=== PATIENT | male | born 1995 | race Caucasian/White ===

== ENCOUNTER 2025-09-11 11:17 | Emergency (ER) | payer MEDICAID, SELFPAY ==
--- NOTE | ~2025-09-11 | CT_ITS ---
CT abdomen pelvis w con Clinical History: BLQ pain, possible diverticulitis . Comparison: None Technique: Axial images lung bases to symphysis pubis IV contrast information not in PACS Coronal, sagittal reformats CT images acquired with automatic exposure control for dose reduction DLP: 513 mGy-cm Findings: Lung bases: Clear. Visualized heart and pericardium: Unremarkable. Liver: Steatosis. Enlarged. Gallbladder: Unremarkable. Spleen: Unremarkable. Pancreas: Unremarkable. Adrenal glands: Unremarkable. Kidneys: Right kidney- No hydronephrosis. Tiny stones. Left kidney- No hydronephrosis. Tiny stones. Distal esophagus/stomach: Unremarkable. Small bowel loops: Normal caliber and wall thickness. Colon: Diverticula. Normal caliber and wall thickness. Normal RLQ appendix. Nodes: No enlarged nodes. Peritoneum: No ascites. No free air. Urinary bladder: Unremarkable. Prostate: Unremarkable. Bones: No acute bony abnormality. Soft tissues: Unremarkable. Aorta: No aneurysm or dissection. IVC: Unremarkable. Main portal vein/SMV/splenic vein: Patent. IMPRESSION: 1. No acute findings. 2. Diverticulosis. No evidence of diverticulitis. 3. Renal stones. No hydronephrosis. Reviewed, dictated and finalized at location R. [facility]IA B[facility] OPERATOR
[2025-09-11 11:21] VITALS: BP 134/115; PULSE 106; RESP 18; TEMP 36.6; O2SAT 99
[2025-09-11] MEDS: KETOROLAC 30 MG/ML VIAL (*BKC) IV PUSH (12:12)
[2025-09-11] MEDS: SODIUM CHLORIDE 0.9% IV 1,000 ML 999 ML IV CONT (12:12)
[2025-09-11 12:13] LABS: Hematocrit 44.5 % (42.0-52.0); Hemoglobin 15.6 g/dL (14.0-18.0); Immature Granulocyte Percent A 0.4 % (0-0.5); Lymphocytes Absolute Auto 2.22 K/mm3 (0.9-3.2); Mean Corpuscular HGB Conc 35.1 g/dl (32-36); Mean Corpuscular Hemoglobin 30.8 pg (26-34); Mean Corpuscular Volume 87.8 fl (80-100); Nucleated Red Blood Cells Absolute Auto 0.000 K/mm3 (0.0-0.012); Nucleated Red Blood Cells Perc 0.0 % (0.0-0.2); Platelet Count Result 268 k/mm3 (150-375); Red Blood Count 5.07 M/mm3 (4.6-6.20); White Blood Count 8.0 K/mm3 (4.5-10.0)
[2025-09-11 12:31] LABS: Alanine Aminotransferase 35 U/L (6-50); Albumin Level 4.4 g/dL (3.5-5.1); Alkaline Phosphatase 78 U/L (38-126); Anion Gap 7 mmol/L (4-12); Aspartate Amino Transferase 40 U/L (17-59); Bilirubin,Total 0.4 mg/dL (0.2-1.3); Blood Urea Nitrogen 13 mg/dL (9-20); Calcium 9.5 mg/dL (8.4-10.2); Carbon Dioxide 26 mmol/L (22-30); Chloride 105 mmol/L (98-107); Estimated CRCL calculation 103 ml/min; Estimated Glomerular Filt Rate > 60; Glucose 102 mg/dL (65-110); Lipase 73 U/L (23-300); Potassium 3.9 mmol/L (3.4-5.0); Sodium 138 mmol/L (137-145); Total Protein 7.5 g/dL (6.3-8.2)
--- NOTE | 2025-09-11 13:50 | ED_ITS ---
HPI - General Adult General Chief complaint: Abdominal Pain Stated complaint: Rectal bleeding x 3 day. abdominal pain Time Seen by Provider: 09/11/25 11:41 History of Present Illness HPI narrative: Patient is a 30-year-old male who presents ER with rectal bleeding x3 days. It only is seen when he wipes and has some discomfort around his anus. No blood in his stool. His stools been soft. He has the sensation that he needs to go the bathroom but cannot get it out. Has some lower abdominal discomfort. Has family history of diverticulitis. Related Data Allergies Allergy/AdvReac Type Severity Reaction Status Date / Time No Known Allergies Allergy Verified 09/11/25 11:19 Review of Systems 2 Review of Systems: All systems reviewed & are unremarkable except as noted in HPI and below Constitutional: Constitutional: Reports no additional constitutional complaints Cardiovascular: Cardiovascular: Reports no additional cardiovascular complaints Gastrointestinal: Gastrointestinal: Reports no additional gastrointestinal complaints Genitourinary: Genitourinary: Reports no additional male genitourinary complaints [facility] Past Medical History Medical History (Updated 09/11/25 @ 13:55 by Rinku Camarena MD) Healthy adult male Surgical History Surgical History (Updated 09/11/25 @ 13:51 by Rinku Camarena MD) No history of previous surgery Exam 2 Narrative: GENERAL: Well-appearing, well-nourished, and in no acute distress. HEAD: Normocephalic, atraumatic. EYES: PERRL and EOMI. ENT: Mucous membranes moist. CHEST: Clear to auscultation. No respiratory distress. HEART: Regular rate and rhythm. Normal peripheral pulses. ABDOMEN: Soft, bilateral lower quadrant abdominal tenderness, nondistended. External rectal exam normal without fissures or masses or blood. Digital exam deferred EXTREMITIES: Normal range of motion. No edema. SKIN: Warm, dry, no rash. NEURO: Alert and oriented x3. PSYCH: Normal mood and affect. Course Course Emergency Course: Discussed imaging and lab results. Given lower abdominal discomfort I will provide him antibiotics for possible diverticulitis. Will also give suppository for likely hemorrhoid that may be just internal to the sphincter. Vital Signs Vital signs: Vital Signs Temperature 97.9 F 09/11/25 11:21 Pulse Rate 106 H 09/11/25 11:21 Respiratory Rate 18 09/11/25 11:21 Blood Pressure 134/115 H 09/11/25 11:21 Pulse Oximetry 99 09/11/25 11:21 Oxygen Delivery Room Air 09/11/25 11:21 Temperature 97.9 F 09/11/25 11:21 Pulse Rate 106 H 09/11/25 11:21 Respiratory Rate 18 09/11/25 11:21 Blood Pressure 134/115 H 09/11/25 11:21 Pulse Oximetry 99 09/11/25 11:21 Oxygen Delivery Room Air 09/11/25 11:21 MDM Differential Diagnosis Differential Diagnosis: Diverticulitis, colitis, kidney stone, hemorrhoid, rectal prolapse Lab Data 09/11/25 12:05 09/11/25 12:05 Labs: Lab Results 09/11/25 Range/Units 12:05 WBC 8.0 (4.5-10.0) K/mm3 RBC 5.07 (4.6-6.20) M/mm3 Hgb 15.6 (14.0-18.0) g/dL Hct 44.5 (42.0-52.0) % MCV 87.8 (80-100) fl MCH 30.8 (26-34) pg MCHC 35.1 (32-36) g/dl RDW 12.8 (11.5-14.5) % Plt Count 268 (150-375) k/mm3 MPV 8.9 (7.4-10.4) fl Immature Gran % (Auto) 0.4 (0-0.5) % Neut % (Auto) 63.5 (45.5-73.1) % Lymph % (Auto) 27.8 (18.3-44.2) % [place] % (Auto) 7.0 (2.6-8.5) % Eos % (Auto) 0.5 (0-4.4) % Baso % (Auto) 0.8 (0.2-1.2) % Lymph # (Auto) 2.22 (0.9-3.2) K/mm3 [place] # (Auto) 0.6 (0.1-0.6) K/mm3 Eos # (Auto) 0.0 (0-0.3) K/mm3 Baso # (Auto) 0.1 (0.0-0.1) K/mm3 Abs Immat Gran (auto) 0.03 (0.00-0.031) K/mm3 Absolute Neuts (auto) 5.1 (1.3-6.7) K/mm3 Absolute Nucleated RBC 0.000 (0.0-0.012) K/mm3 Nucleated RBC % 0.0 (0.0-0.2) % Sodium 138 (137-145) mmol/L Potassium 3.9 (3.4-5.0) mmol/L Chloride 105 (98-107) mmol/L Carbon Dioxide 26 (22-30) mmol/L Anion Gap 7 (4-12) mmol/L BUN 13 (9-20) mg/dL Creatinine 0.93 (0.7-1.3) mg/dL Estim Creat Clear Calc 103 ml/min Estimated GFR > 60 (59 - ) Glucose 102 (65-110) mg/dL Calcium 9.5 (8.4-10.2) mg/dL Total Bilirubin 0.4 (0.2-1.3) mg/dL AST 40 (17-59) U/L ALT 35 (6-50) U/L Alkaline Phosphatase 78 (38-126) U/L Total Protein 7.5 (6.3-8.2) g/dL Albumin 4.4 (3.5-5.1) g/dL Lipase 73 (23-300) U/L Imaging Data Radiologist's impression: ITS Impressions Abdomen/Pelvis CT 09/11/25 13:01 IMPRESSION: 1. No acute findings. 2. Diverticulosis. No evidence of diverticulitis. 3. Renal stones. No hydronephrosis. Discharge Plan Discharge Clinical Impression: Diverticulosis, Hemorrhoid Patient Disposition: Home Condition: Stable Instructions: Hemorrhoids (ED), Diverticulosis (ED), Diverticulitis Diet (ED) Additional Instructions: Return to the emergency department if you develop severe abdominal pain, severe nausea and vomiting to the point where you are unable to keep down fluids, if you develop chest pain or difficulty breathing, blood in your stool, dizziness or fainting, or if you develop any other new or concerning symptoms as these could be signs of more serious medical illness. Try to stay well hydrated. Patient Language: [place] Prescriptions: New amoxicillin-pot clavulanate 875-125 mg tablet 1 tablet PO Q12H Qty: 14 0RF hydrocortisone acetate [Anucort-HC] 25 mg suppository 25 mg RECTAL DAILY Qty: 12 0RF Follow-up/Referrals: PHYSICIAN,PARADICHLOROBENZENE MACHINE OPERATOR [Primary Care Provider, Internal Medicine] Checo Quarles MD [Physician, Family Practice] - 1 Week
[2025-09-11 14:05] VITALS: BP 132/84; PULSE 64; RESP 15; O2SAT 100
== END 2025-09-11 14:06 | disposition home or self-care (01) ==
PROVIDERS: Emergency Provider Emergency Medicine
DX: K64.9 Unspecified hemorrhoids (principal); K57.30 Diverticulosis of large intestine without perforation or abscess without bleeding
CPT/HCPCS: 36415; 74177; 80053; 83690; 85025; 96361; 96374; 99284; J1885; J7030; Q9967